=== PATIENT | female | born 1950 | race Caucasian/White ===

== ENCOUNTER 2017-01-05 15:15 | Emergency (ER) | payer OTHER ==
[~2017-01-05] VITALS: Ht 167.6 cm; Wt 83.9 kg
[2017-01-05 15:41] VITALS: BP 158/100
--- NOTE | 2017-01-05 16:29 | NUR ---
Patient ambulated to bed 8. RN evaluating patient at bedside.
--- NOTE | 2017-01-05 16:40 | NUR ---
Dr. Drake evaluating patient at bedside.
--- NOTE | 2017-01-05 16:46 | NUR ---
LOW BACK PAIN, BILATERAL HIPS, LT KNEE PAIN 8/10 POST FALL TODAY @1300. PT AMBULATED TO BED AND TOLERATED WELL, A&OX, VS, GURNEY TO LOWEST LEVEL, BED RAIL UP.
[2017-01-05] MEDS ORDERED: IBUPROFEN 800 MG TAB PO ONE (16:50)
[2017-01-05 17:18] VITALS: BP 158/100
== END 2017-01-05 17:15 | disposition home or self-care (01) ==
LOC: MED 15:15
DX: S70.01XA Contusion of right hip, initial encounter (principal); S83.8X2A Sprain of other specified parts of left knee, initial encounter; I10 Essential (primary) hypertension; W19.XXXA Unspecified fall, initial encounter; Y93.89 Activity, other specified; Y92.89 Other specified places as the place of occurrence of the external cause; Y99.8 Other external cause status
CPT/HCPCS: 72110; 73501; 73562; 99284